=== PATIENT | male | born 1980 | race Caucasian/White ===

== ENCOUNTER → 2019-06-27 | Outpatient (CLI) | payer OTHER ==
[2016-09-03 13:20] VITALS: BP 154/90
--- NOTE | 2019-06-27 14:30 | RAD ---
Examination: Bilateral Lower Extremity Venous Doppler Ultrasound History: Bilateral leg pain, leg lumps Comparison: None Procedure: Yu scale, color flow 2D and spectal waveform analysis images are obtained with and without compression in the area of the common femoral vein, superficial femoral vein - femoral vein junction, main femoral vein (superficial femoral vein) and popliteal vein. Veins of the proximal calf are also imaged. Findings: There is normal duplex flow, color flow and compressibility of all visualized vein segments. No evidence of deep venous thrombus is present. There is a 5 mm hyperechoic soft tissue echogenicity and a 9 mm hypoechoic soft tissue echogenicity identified in the anterolateral calf within the soft tissue, without vascular flow, nonspecific could be nodules, difficult to characterize. Impression: 1. No evidence of deep venous thrombosis. 2. 5 mm hyperechoic soft tissue echogenicity and a 9 mm hypoechoic soft tissue echogenicity identified in the anterolateral calf within the soft tissue, without vascular flow, nonspecific could be nodules, difficult to characterize. Close interval follow-up examination is recommended document stability. Electronically signed by: Wallace Sandhu MD (06/27/2019 2:27 PM) [id number]
== END | disposition home or self-care (01) ==
LOC: US 10:31
PROVIDERS: ATTEND Family Medicine
DX: M79.605 Pain in left leg (principal); M79.604 Pain in right leg
CPT/HCPCS: 93970

== ENCOUNTER → 2019-11-14 | Outpatient (CLI) | payer OTHER ==
[2016-09-03 13:20] VITALS: BP 154/90
--- NOTE | 2019-11-14 17:01 | RAD ---
Right lower survey arterial duplex ultrasound study without comparison for right leg pain. Technique an findings: Real-time grayscale and color and spectral Doppler evaluation of the right lower extremity arterial tree is performed. All vessels are patent. All vessels except for the anterior tibial artery demonstrate triphasic flow, with no hemodynamically significant stenoses. The anterior tibial artery demonstrate monophasic flow, with decreased velocity, and there may be significant disease in this vessel, though isolated anterior tibial artery disease unlikely to produce claudication or rest pain. There are a few scattered atherosclerotic calcifications elsewhere. IMPRESSION: 1. Probable stenosis or segmental occlusion of the right anterior tibial artery, with wide patency of all remaining vessels. This finding in isolation is unlikely to produce claudication or rest pain. Nevertheless, if clinically warranted, this finding could be better evaluated with CTA and/or direct angiography. Electronically signed by: Renato Multani MD (11/14/2019 4:58 PM) [id number]
--- NOTE | 2019-11-14 17:56 | RAD ---
Targeted ultrasound of the right and left calf HISTORY: Leg lumps. TECHNIQUE: Grayscale and color Doppler scanning performed over the lumps. FINDINGS: Some of the palpable lumps correspond with patent saphenous vein, without evidence of thrombus. Others correspond with small hypoechoic foci without flow or vascularity. At least one of these appears to traverse the fascia. No large vascular mass is seen. No organized drainable fluid collection is seen. IMPRESSION: Some lumps correspond with saphenous vein, others with small nonspecific hypoechoic foci. No large vascular mass or drainable fluid collection is seen. Depending on clinical concern, MRI could further evaluate. Electronically signed by: Juan Lucas MD (11/14/2019 5:53 PM) [facility]
== END | disposition home or self-care (01) ==
LOC: US 09:24
PROVIDERS: ATTEND Family Medicine
DX: I70.201 Unspecified atherosclerosis of native arteries of extremities, right leg (principal); R22.41 Localized swelling, mass and lump, right lower limb
CPT/HCPCS: 76882; 93926

== ENCOUNTER → 2019-11-21 | Outpatient (CLI) | payer OTHER ==
[2016-09-03 13:20] VITALS: BP 154/90
[~2019-11-21] MED LIST: IOHEXOL 350 MG/ML 100 ML VIAL. IV ONE
--- NOTE | 2019-11-22 09:59 | RAD ---
CT ANGIO LOWER EXTREMITY RIGHT Indication: Right lower extremity pain Comparison: None. Technique: After administration of intravenous contrast, CT right lower extremity runoff was performed. Multiplanar reconstructions were obtained. 75 mL of Omnipaque [address] Angiogram findings: Normal caliber distal abdominal aorta without evidence of stenosis or ectasia. The celiac artery, SMA, right renal artery, and WALLY are patent without evidence of stenosis or dilation. The right common iliac artery, external iliac artery, and internal iliac artery are patent without evidence of stenosis or dilation. The right common femoral artery, superficial femoral artery, deep femoral artery, and popliteal artery are patent without evidence of stenosis or occlusion. Normal right three-vessel runoff. The right peroneal artery is patent to the level of the midcalf. The right posterior tibial artery is patent to the level of the foot. The right anterior tibial artery is patent through the level of the dorsalis pedis artery in the foot. Partially visualized abdominal structures are unremarkable. No acute osseous abnormality. IMPRESSION: Normal right lower extremity runoff. No arterial stenosis or occlusion. Electronically signed by: Maverick Keller MD (11/22/2019 9:55 AM) [id number]
== END ==
LOC: CT 09:06
PROVIDERS: ATTEND Family Medicine
DX: M79.661 Pain in right lower leg (principal)
CPT/HCPCS: 73706; Q9967

== ENCOUNTER 2020-08-23 11:03 | Inpatient (IN) | payer SELFPAY ==
[~2020-08-23] VITALS: Ht 182.9 cm; Wt 115.1 kg
--- NOTE | 2020-08-23 11:17 | PHYS DOC ---
Past History Past Medical History: Hypertension Past Surgical History: No Surgical History Alcohol Use: None Drug Use: None Adult General HPI HPI Patient is a 40yo male presenting from PCP office for COVID. Patient recently tested positive for COVID and has been self-quaranting. He reports classic constellation of COVID 19 symptoms throughout duration of illness for past ~9 days but states ongoing URI-like symptoms, dry cough and diarrhea. States he went for "repeat test after my 14 day quarantine" today at PCP's office and subsequently had CXR performed which was concerning given clinical correlation of patient's symptoms and he was subsequently referred to our ER for further workup and consideration for admission. Patient denies fever. Review of Systems Review of Systems Fourteen body systems of review of systems have been reviewed. See HPI for pertinent positives and negative responses, other casanova all other systems are negative, non-pertinent or non-contributory Allergies Allergies Allergies Coded Allergies Type Severity Reaction Last Updated Verified No Known Drug Allergies 09/03/16 No Physical Exam Physical Exam Constitutional: Well developed, well nourished, no acute distress, appears ill and tired HENT: Normocephalic, atraumatic, bilateral external ears normal, oropharynx dry, no oral exudates, nose normal. Eyes: PERRLA, EOMI, conjunctiva normal, no discharge. Neck: Normal range of motion, no tenderness, supple, no stridor. Cardiovascular: Heart rate regular, sinus rhythm, no murmurs rubs or gallops Lungs & Thorax: Inc work of breathing without signs of resp distress or accessory muscle use, crackles in bilateral lung dhaliwal Abdomen: Bowel sounds normal, soft, no tenderness, no masses, no pulsatile masses. Nonsurgical abdomen, no peritoneal signs Skin: Warm, dry, no erythema, no rash. Back: No tenderness, no CVA tenderness. Extremities: No tenderness, no cyanosis, no clubbing, ROM intact, no edema. Neurologic: Alert and oriented X 3, grossly normal motor & sensory function, no focal deficits noted. Psychologic: Affect normal, judgement normal,depressed mood Current Patient Data Vital Signs Vital Signs Date Time Temp Pulse Resp B/P (MAP) Pulse Ox O2 Delivery O2 Flow Rate FiO2 08/23/20 21:45 Room Air 08/23/20 20:12 98.1 78 22 139/71 (93) 96 Lab Results Laboratory Tests Test 08/23/20 11:30 08/23/20 15:26 White Blood Count 7.9 x10^3/uL (4.0-11.0) Red Blood Count 4.83 x10^6/uL (4.30-5.70) Hemoglobin 15.2 g/dL (13.0-17.5) Hematocrit 45.4 % (39.0-53.0) Mean Corpuscular Volume 94 fL (79-100) Mean Corpuscular Hemoglobin 31 pg (25-35) Mean Corpuscular Hemoglobin Concent 34 g/dL (31-37) Red Cell Distribution Width 12.7 % (11.5-14.5) Platelet Count 604 x10^3/uL (140-400) Neutrophils (%) (Auto) 61 % (31-73) Lymphocytes (%) (Auto) 26 % (24-48) Monocytes (%) (Auto) 9 % (0-9) Eosinophils (%) (Auto) 2 % (0-3) Basophils (%) (Auto) 1 % (0-3) Neutrophils # (Auto) 4.9 x10^3uL (1.8-7.7) Lymphocytes # (Auto) 2.1 x10^3/uL (1.0-4.8) Monocytes # (Auto) 0.7 x10^3/uL (0.0-1.1) Eosinophils # (Auto) 0.2 x10^3/uL (0.0-0.7) Basophils # (Auto) 0.1 x10^3/uL (0.0-0.2) Sodium Level 138 mmol/L (136-145) Potassium Level 3.2 mmol/L (3.5-5.1) Chloride Level 100 mmol/L (98-107) Carbon Dioxide Level 28 mmol/L (21-32) Anion Gap 10 (6-14) Blood Urea Nitrogen 12 mg/dL (8-26) Creatinine 1.1 mg/dL (0.7-1.3) Estimated GFR (Cockcroft-Gault) 74.5 BUN/Creatinine Ratio 11 (6-20) Glucose Level 100 mg/dL (70-99) Lactic Acid Level 2.0 mmol/L (0.4-2.0) Calcium Level 9.2 mg/dL (8.5-10.1) Total Bilirubin 0.8 mg/dL (0.2-1.0) Gamma Glutamyl Transpeptidase 207 U/L (10-85) Aspartate Amino Transf (AST/SGOT) 154 U/L (15-37) Alanine Aminotransferase (ALT/SGPT) 252 U/L (16-63) Alkaline Phosphatase 145 U/L (46-116) Troponin I Quantitative < 0.017 ng/mL (0-0.055) Total Protein 8.3 g/dL (6.4-8.2) Albumin 3.1 g/dL (3.4-5.0) Albumin/Globulin Ratio 0.6 (1.0-1.7) Influenza Type A (Rapid) Negative (NEGATIVE) Influenza Type B (Rapid) Negative (NEGATIVE) EKG EKG EKG ordered and interpreted by myself at 1151 hrs. as sinus rhythm at 70 bpm, unremarkable intervals, no axis deviation, no acute ischemic findings, no STEMI Radiology/Procedures Radiology/Procedures PROCEDURE: CHEST AP ONLY CHEST AP ONLY History: Reason: chest pain / Spl. Instructions: / History: Comparison: September 26, 2011 Findings: Ill-defined bilateral pulmonary opacities, right greater than left. No pleural effusion. No pneumothorax. Normal heart size. Impression: 1. Ill-defined bilateral opacities, concerning for pneumonia including viral pneumonia. Electronically signed by: Ludwig Baird DO (08/23/2020 12:17 PM) [id number] Heart Score HEART Score for Chest Pain: HEART Score for Chest Pain Response (Comments) Value History Slighlty/Non-Suspicious 0 ECG Normal 0 Age < 45 0 Risk Factors 1 or 2 Risk Factors 1 Troponin < Normal Limit 0 Total 1 Risk Factors: Risk Factors: DM, Current or recent (<one month) smoker, HTN, HLP, family history of CAD, obesity. Risk Scores: Risk Factors: DM, Current or recent (<one month) smoker, HTN, HLP, family history of CAD, obesity. Course & Med Decision Making Course & Med Decision Making Pertinent Labs and Imaging studies reviewed. (See chart for details) Symptomatic COVID affecting ADLs, decreased PO intake with concerning CXR results in setting of increased work up breathing. Patient responded to ED intervention but still not fit for safe discharge home PCP, Dr. Montes De Oca, called and case discussed. He agreed to admission to [facility] under his care for further med management I updated patient on proposed plan of care and he was amenable, all questions and concerns addressed prior to ED transport to [facility] Disclaimer Milag[place]on Disclaimer This electronic medical record was generated, in whole or in part, using a voice recognition dictation system. Departure Departure: Impression: Primary Impression: Pneumonia Additional Impression: COVID-19 Disposition: 09 ADMITTED INPT THIS HOSP Admitting Physician: Fabian Montes De Oca Condition: STABLE Referrals: THAD KEE MD (PCP) Problem Qualifiers MARY TALAVERA DO Aug 23, 2020 11:17
[2020-08-23 12:06] LABS: BASO # 0.1 x10^3/uL (0.0-0.2); BASO % 1 % (0-3); EOS # 0.2 x10^3/uL (0.0-0.7); EOS % 2 % (0-3); HEMATOCRIT 45.4 % (39.0-53.0); HEMOGLOBIN 15.2 g/dL (13.0-17.5); LYMPH # 2.1 x10^3/uL (1.0-4.8); LYMPH % 26 % (24-48); MEAN CORPUSCULAR HEMOGLOBIN 31 pg (25-35); MEAN CORPUSCULAR HGB CONC 34 g/dL (31-37); MEAN CORPUSCULAR VOLUME 94 fL (79-100); MONO # 0.7 x10^3/uL (0.0-1.1); MONO % 9 % (0-9); NEUT # 4.9 x10^3uL (1.8-7.7); NEUT % 61 % (31-73); PLATELET COUNT 604 x10^3/uL (140-400); RED BLOOD COUNT 4.83 x10^6/uL (4.30-5.70); RED CELL DISTRIBUTION WIDTH 12.7 % (11.5-14.5); WHITE BLOOD COUNT 7.9 x10^3/uL (4.0-11.0)
[2020-08-23 12:18] LABS: CALCIUM 9.2 mg/dL (8.5-10.1); CREATININE 1.1 mg/dL (0.7-1.3); GFR 74.5; POTASSIUM 3.2 mmol/L (3.5-5.1)
--- NOTE | 2020-08-23 12:20 | RAD ---
CHEST AP ONLY History: Reason: chest pain / Spl. Instructions: / History: Comparison: September 26, 2011 Findings: Ill-defined bilateral pulmonary opacities, right greater than left. No pleural effusion. No pneumothorax. Normal heart size. Impression: 1. Ill-defined bilateral opacities, concerning for pneumonia including viral pneumonia. Electronically signed by: Ludwig Baird DO (08/23/2020 12:17 PM) [id number]
[2020-08-23 12:24] LABS: ALBUMIN 3.1 g/dL (3.4-5.0); ALBUMIN/GLOBULIN RATIO 0.6 (1.0-1.7); TOTAL BILIRUBIN 0.8 mg/dL (0.2-1.0); TOTAL PROTEIN 8.3 g/dL (6.4-8.2)
[2020-08-23] MEDS ORDERED: AZITHROMYCIN 500 MG in IV NORMAL SALINE 250ML 250 ML IV ONE (12:45)
[2020-08-23] MEDS ORDERED: AZITHROMYCIN 500 MG VIAL. IV ONE (12:54)
[2020-08-23] MEDS ORDERED: IV NORMAL SALINE 250ML 250 ML ONE (12:54)
[2020-08-23] MEDS ORDERED: IV NORMAL SALINE 100ML 100 ML ONE (12:55)
--- NOTE | 2020-08-23 14:50 | EKG ---
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
[2020-08-23] MEDS ORDERED: ALBUTEROL SULFATE 8GM INHALER. INH PRN (15:00)
[2020-08-23] MEDS ORDERED: POTASSIUM CHLORIDE 20 MEQ TABLET.ER. PO ONE (15:15)
[2020-08-23] MEDS: IV NORMAL SALINE 1,000ML 1,000 ML IV SCH (15:20)
[2020-08-23 15:38] VITALS: BP 140/84
[2020-08-23] MEDS ORDERED: CARV25TA PO (15:46)
[2020-08-23] MEDS: DEXAMETHASONE SOD PHOS 4 MG/ML VIAL. IVP SCH (17:02)
[2020-08-23 17:26] LABS: INFLUENZA A PATIENT NEGATIVE (NEGATIVE); INFLUENZA B PATIENT NEGATIVE (NEGATIVE)
[2020-08-23] MEDS ORDERED: ELECTROLYTE (NON-ICU) PROTOCOL. MC PRN (17:30)
[2020-08-23] MEDS ORDERED: LORazepam 0.5 MG TABLET PO PRN (17:45)
[2020-08-23] MEDS ORDERED: ZOLPIDEM 5 MG TABLET. PO PRN (18:15)
[2020-08-23] MEDS ORDERED: ACETAMINOPHEN 500 MG TABLET PO PRN (18:15)
[2020-08-23] MEDS ORDERED: IBUPROFEN 400 MG TABLET. PO PRN (18:30)
[2020-08-23 20:12] VITALS: BP 139/71
[2020-08-23] MEDS: ENOXAPARIN 40 MG/0.4 ML SYRINGE. SQ SCH (21:15)
[2020-08-23 23:27] VITALS: BP 139/79
[2020-08-24] MEDS: DEXAMETHASONE SOD PHOS 4 MG/ML VIAL. IVP SCH ×4 (00:26→17:04)
[2020-08-24] MEDS: IV NORMAL SALINE 1,000ML 1,000 ML IV SCH ×2 (05:00→17:55)
[2020-08-24 06:29] LABS: BASO % 1 % (0-3); EOS % 0 % (0-3); HEMATOCRIT 42.8 % (39.0-53.0); HEMOGLOBIN 14.3 g/dL (13.0-17.5); LYMPH # 1.4 x10^3/uL (1.0-4.8); LYMPH % 23 % (24-48); MEAN CORPUSCULAR HEMOGLOBIN 32 pg (25-35); MEAN CORPUSCULAR HGB CONC 34 g/dL (31-37); MEAN CORPUSCULAR VOLUME 94 fL (79-100); MONO # 0.2 x10^3/uL (0.0-1.1); MONO % 3 % (0-9); NEUT # 4.3 x10^3uL (1.8-7.7); NEUT % 74 % (31-73); PLATELET COUNT 541 x10^3/uL (140-400); RED BLOOD COUNT 4.53 x10^6/uL (4.30-5.70); RED CELL DISTRIBUTION WIDTH 12.8 % (11.5-14.5); WHITE BLOOD COUNT 5.9 x10^3/uL (4.0-11.0)
[2020-08-24 06:30] VITALS: BP 152/87
[2020-08-24 06:37] LABS: CALCIUM 9.1 mg/dL (8.5-10.1); CREATININE 0.8 mg/dL (0.7-1.3); GFR 107.6; POTASSIUM 4.1 mmol/L (3.5-5.1)
[2020-08-24] MEDS: AZITHROMYCIN 250 MG TABLET. PO SCH (09:50)
[2020-08-24] MEDS: FAMOTIDINE 20 MG TABLET PO SCH ×2 (09:50→21:03)
[2020-08-24] MEDS: CARVEDILOL 12.5 MG TABLET PO SCH (09:50)
[2020-08-24] MEDS: THIAMINE INJ 100 MG in IV NORMAL SALINE 50ML 50 ML IV SCH (09:51)
[2020-08-24 11:25] VITALS: BP 141/78
[2020-08-24 14:02] LABS: ALBUMIN 2.9 g/dL (3.4-5.0); DIRECT BILIRUBIN 0.2 mg/dL (0.0-0.2); TOTAL BILIRUBIN 0.4 mg/dL (0.2-1.0); TOTAL PROTEIN 7.1 g/dL (6.4-8.2)
[2020-08-24 15:28] VITALS: BP 140/64
[2020-08-24] MEDS: ENOXAPARIN 40 MG/0.4 ML SYRINGE. SQ SCH (17:04)
[2020-08-24 19:54] VITALS: BP 133/73
[2020-08-24] MEDS: LACTOBACILLUS RHAMNOSUS GG 1 CAPSULE. PO SCH (21:03)
[2020-08-25] MEDS: DEXAMETHASONE SOD PHOS 4 MG/ML VIAL. IVP SCH ×2 (00:05→05:28)
--- NOTE | 2020-08-25 01:55 | PN ---
DATE: SUBJECTIVE: A 40-year-old male in with COVID-19 pneumonia. The patient says he is feeling somewhat better today with the Decadron and other medications such as the azithromycin. He had failed those as an outpatient, but seems to be gaining some of his strength with this regimen. OBJECTIVE: VITAL SIGNS: Blood pressure 133/70, respiratory rate 20, pulse 80, afebrile. GENERAL: The patient is alert and oriented. LUNGS: Diminished throughout, poor movement of air, but clearer than they have been. CARDIOVASCULAR: Stable. ABDOMEN: Soft, nontender. He is on Lovenox. NEUROLOGIC: Intact. PLAN: The patient continued to be monitored carefully, make further evaluation on him as indicated. IMPRESSION: COVID-19 pneumonia, thrombocytosis, elevated liver enzymes including elevated GGTP, severe protein malnutrition. Hepatitis screen negative as was his influenza. His positive COVID test was done as an outpatient. JOSIANE MCGOWAN MD DR: JUAN JOSE/dilshad JOB#: [id number] / [id number]
[2020-08-25 06:14] VITALS: BP 147/75
[2020-08-25] MEDS: IV NORMAL SALINE 1,000ML 1,000 ML IV SCH (07:15)
[2020-08-25] MEDS ORDERED: CHOLECALCIFEROL (VITAMIN D3) 1,000 UNIT TABLET PO SCH (09:00)
[2020-08-25] MEDS: AZITHROMYCIN 250 MG TABLET. PO SCH (09:00)
[2020-08-25] MEDS: THIAMINE INJ 100 MG in IV NORMAL SALINE 50ML 50 ML IV SCH (09:00)
[2020-08-25 09:04] VITALS: BP 147/75
[2020-08-25] MEDS: FAMOTIDINE 20 MG TABLET PO SCH (09:04)
[2020-08-25] MEDS: LACTOBACILLUS RHAMNOSUS GG 1 CAPSULE. PO SCH (09:04)
[2020-08-25] MEDS: CARVEDILOL 12.5 MG TABLET PO SCH (09:04)
[2020-08-25] MEDS ORDERED: ALBU8HFA2 INH (10:51)
[2020-08-25] MEDS ORDERED: DOXY100C2 PO (10:51)
[2020-08-25] MEDS ORDERED: LORA0.5T21 PO (10:51)
[2020-08-25] MEDS ORDERED: AZIT250T6 PO (10:51)
[2020-08-25] MEDS ORDERED: DEXA4VIA37 IVP (10:51)
== END 2020-08-25 11:27 | disposition home or self-care (01) | DRG 177 ==
LOC: ER 11:03 → 1 SOUTH 14:00
PROVIDERS: ADMIT Family Medicine; ATTEND Family Medicine
DX: U07.1 COVID-19 (principal); E43 Unspecified severe protein-calorie malnutrition; J12.89 Other viral pneumonia; I10 Essential (primary) hypertension; R74.8 Abnormal levels of other serum enzymes; Z68.34 Body mass index [BMI] 34.0-34.9, adult
CPT/HCPCS: 36415; 71045; 80048; 80053; 80076; 82977; 83605; 84484; 85025; 86705; 86709; 86803; 87040; 87340; 87804; 93005; 96365; 96366; 96368; 99285; J0456; J0696; J1100; J1650; J7050; J7613; J7030

== ENCOUNTER → 2020-09-01 | Outpatient (CLI) | payer OTHER ==
[2020-08-25 09:04] VITALS: BP 147/75
[~2020-09-01] MED LIST changes: +ALBU8HFA2 INH; +AZIT250T6 PO; +CARV25TA PO; +DEXA4VIA37 IVP; +DOXY100C2 PO; -IOHEXOL 350 MG/ML 100 ML VIAL. IV ONE; +LORA0.5T21 PO
--- NOTE | 2020-09-01 09:18 | RAD ---
STUDY: US VENOUS LOWER EXTREMITY LEFT INDICATION: Left leg pain. TECHNIQUE: Color-flow and pulsed wave duplex ultrasound with compression of venous structures of the left lower extremity. COMPARISON: 06/27/2019. FINDINGS: Duplex ultrasound with compression of the deep venous structures of the left lower shotty from the common femoral vein through the popliteal vein is negative for DVT. The posterior tibial and peroneal veins are segmentally visualized and patent where seen. Normal venous waveforms and augmentation are noted throughout. IMPRESSION: No deep venous thrombosis seen throughout the left lower extremity. Electronically signed by: MARIA MINER MD (09/01/2020 9:15 AM) [id number]
== END ==
LOC: US 08:26
PROVIDERS: ATTEND Family Medicine
DX: M79.605 Pain in left leg (principal)
CPT/HCPCS: 93971

== ENCOUNTER → 2021-09-12 | Outpatient (CLI) | payer OTHER ==
[~2021-09-12] MED LIST changes: -DOXY100C2 PO; +DOXY100C3 PO
--- NOTE | 2021-09-12 08:54 | RAD ---
EXAMINATION: US ABDOMEN COMPLETE INDICATION: 41 years, Male, abnormal liver function test. COMPARISON: None TECHNIQUE: Grayscale, color Doppler and limited spectral Doppler images of the abdomen were obtained. FINDINGS: LIVER: SIZE (LENGTH): 15.9 cm. ECHOGENICITY: Increased. PARENCHYMA: Homogeneous echotexture. No discrete focal lesion. INTRAHEPATIC BILE DUCTS: Nondilated. PORTAL VEIN: Patent with normal hepatopedal flow. GALLBLADDER: GALLBLADDER WALL THICKNESS: 1.7 mm. MORPHOLOGY: Normal morphology. No r pericholecystic free fluid. LUMEN: Normal. COMMON BILE DUCT DIAMETER: Not visualized. RIGHT KIDNEY: MEASURES: 12.6 cm in length. MORPHOLOGY/PARENCHYMA: Normal corticomedullary differentiation with no shadowing calculus or discrete masses. COLLECTING SYSTEM: No hydronephrosis. LEFT KIDNEY: MEASURES: 13.2 cm in length MORPHOLOGY/PARENCHYMA: Normal corticomedullary differentiation with no shadowing calculus or discrete masses. COLLECTING SYSTEM: No hydronephrosis. SPLEEN: SIZE (LENGTH): 11.9 cm PARENCHYMA: Unremarkable. PANCREAS: VISUALIZED PORTIONS: Head and proximal body. APPEARANCE: Within normal limits. OTHER: RETROPERITONEUM, INFERIOR VENA CAVA: Normal caliber. AORTA: Normal caliber measures up to 2.4 cm FLUID:No free fluid. IMPRESSION: 1. Moderate diffuse hepatic steatosis. 2. Common bile duct is not visualized. However, no intrahepatic biliary ductal dilation. Electronically signed by: Hira Pollard MD (09/12/2021 8:51 AM) [id number]
== END ==
LOC: US 07:48
PROVIDERS: ATTEND Family Medicine
DX: K76.0 Fatty (change of) liver, not elsewhere classified (principal); R94.5 Abnormal results of liver function studies
CPT/HCPCS: 76700